=== PATIENT | male | born 1995 | race Caucasian/White ===

== ENCOUNTER 2017-08-26 11:34 | Emergency (ER) | payer MEDICAID ==
[~2017-08-26] VITALS: Ht 162.6 cm; Wt 67.0 kg
[2017-08-26 11:56] VITALS: BP 127/61
== END 2017-08-26 12:42 | disposition home or self-care (01) ==
LOC: ER 11:35
DX: S10.96XA Insect bite of unspecified part of neck, initial encounter (principal); W57.XXXA Bitten or stung by nonvenomous insect and other nonvenomous arthropods, initial encounter; Y93.89 Activity, other specified; Y92.89 Other specified places as the place of occurrence of the external cause; Y99.8 Other external cause status
CPT/HCPCS: 99281

== ENCOUNTER → 2017-10-27 | Emergency (ER) | payer MEDICAID, OTHER ==
[~2017-10-27] VITALS: Ht 162.6 cm; Wt 60.0 kg
[~2017-10-27] MED LIST: CEPH500C5 PO; SULF1TAB49 PO
[2017-10-27 17:40] VITALS: BP 138/84
== END | disposition home or self-care (01) ==
LOC: ER 17:34
DX: L03.211 Cellulitis of face (principal); L02.01 Cutaneous abscess of face; F12.10 Cannabis abuse, uncomplicated; F17.200 Nicotine dependence, unspecified, uncomplicated; Z79.899 Other long term (current) drug therapy
CPT/HCPCS: 99283

== ENCOUNTER 2019-02-15 22:30 | Emergency (ER) | payer MEDICAID, OTHER ==
[~2019-02-15] VITALS: Ht 177.8 cm; Wt 63.6 kg
[2019-02-15 22:39] VITALS: BP 105/61
[2019-02-15] MEDS ORDERED: ibuprofen 200mg tablet PO ONE (23:35)
[2019-02-15] MEDS ORDERED: OMEP40CA13 PO (23:43)
== END 2019-02-16 00:21 | disposition home or self-care (01) ==
LOC: ER 22:31
DX: S40.212A Abrasion of left shoulder, initial encounter (principal); K92.1 Melena; F12.90 Cannabis use, unspecified, uncomplicated; Z79.899 Other long term (current) drug therapy; V49.9XXA Car occupant (driver) (passenger) injured in unspecified traffic accident, initial encounter; Y93.89 Activity, other specified; Y92.488 Other paved roadways as the place of occurrence of the external cause; Y99.8 Other external cause status
CPT/HCPCS: 73030; 99283

== ENCOUNTER 2020-02-16 09:08 | Emergency (ER) | payer MEDICAID ==
[~2020-02-16] VITALS: Ht 162.6 cm; Wt 68.5 kg
[2020-02-16] MEDS ORDERED: TETanus/Pertussis (Acell)/Diphther VAC/PF (Tdap-Adult) 0.5ml syringe IMVAC ONE (10:55)
[2020-02-16] MEDS ORDERED: LIDOcaine 1% W/epiNEPHrine 1:200,000 10ml vial IJ ONE (10:55)
[2020-02-16] MEDS ORDERED: ceFAZolin 1gm IM kit IM ONE (11:25)
[2020-02-16] MEDS ORDERED: HYDR-3965 PO (11:35)
[2020-02-16] MEDS ORDERED: CEPH500C5 PO (11:35)
[2020-02-16 11:46] VITALS: BP 95/16
== END 2020-02-16 11:47 | disposition home or self-care (01) ==
LOC: ER 09:09
DX: L02.413 Cutaneous abscess of right upper limb (principal); F15.90 Other stimulant use, unspecified, uncomplicated; Z79.899 Other long term (current) drug therapy
CPT/HCPCS: 10060; 73080; 87070; 87077; 87186; 90715; 96372; 99284; J0690; 99283

== ENCOUNTER 2020-02-19 17:31 | Emergency (ER) | payer MEDICAID ==
[~2020-02-19] VITALS: Ht 162.6 cm; Wt 69.4 kg
[~2020-02-19 17:31] MED LIST changes: +HYDR-3965 PO; +LIDOcaine 1% W/epiNEPHrine 1:100,000 20ml vial ONE; -SULF1TAB49 PO
[2020-02-19] MEDS ORDERED: BACDS PO (18:39)
[2020-02-19 18:44] VITALS: BP 121/81
== END 2020-02-19 18:51 | disposition home or self-care (01) ==
LOC: ER 17:32
DX: L02.413 Cutaneous abscess of right upper limb (principal); F12.90 Cannabis use, unspecified, uncomplicated; F15.90 Other stimulant use, unspecified, uncomplicated; Z79.899 Other long term (current) drug therapy
CPT/HCPCS: 10060; 99283

== ENCOUNTER 2020-12-30 23:17 | Emergency (ER) | payer MEDICAID ==
[~2020-12-30] VITALS: Ht 175.3 cm; Wt 68.2 kg
[~2020-12-30 23:17] MED LIST changes: +CEPH-585 PO; -CEPH500C5 PO; -HYDR-3965 PO; -LIDOcaine 1% W/epiNEPHrine 1:100,000 20ml vial ONE
[2020-12-30 23:18] VITALS: BP 125/65
[2020-12-30] MEDS ORDERED: MUPI15CR12 TOP (23:39)
[2020-12-30] MEDS ORDERED: SULF1TAB49 PO (23:39)
== END 2020-12-31 00:04 | disposition home or self-care (01) ==
LOC: ER 23:17
DX: L02.413 Cutaneous abscess of right upper limb (principal); F12.90 Cannabis use, unspecified, uncomplicated; F15.90 Other stimulant use, unspecified, uncomplicated; Z79.2 Long term (current) use of antibiotics
CPT/HCPCS: 99283